=== PATIENT | male | born 1945 | race Two or more races ===

== ENCOUNTER 2017-11-30 18:22 | Emergency (ER) | payer OTHER ==
[~2017-11-30] VITALS: Ht 177.8 cm; Wt 56.2 kg
[2017-11-30] MEDS ORDERED: SODIUM CHLORIDE 0.9% 1,000 ML IV ONE (21:45)
[2017-11-30 22:06] LABS: Basophils # (auto) 0 uL; Basophils % (auto) 0.8 % (0.0-2.0); Eosinophils # (auto) 0.1 uL; Eosinophils % (auto) 1.3 % (0.0-7.0); Hematocrit 39.4 % (41.0-53.0); Hemoglobin 13.6 g/dL (13.5-17.5); Lymphocytes # (auto) 1.7 uL; Lymphocytes % (auto) 40.7 % (10.0-50.0); Mean Corpuscular Hemoglobin 32.6 pg (28.0-32.0); Mean Corpuscular Hgb Conc. 34.4 g/dL (32.0-36.0); Mean Corpuscular Volume 94.6 fL (80.0-100.0); Monocytes # (auto) 0.4 uL; Monocytes % (auto) 8.8 % (0.0-12.0); Neutrophils % (auto) 48.4 % (37.0-80.0); Nucleated Red Blood Cells % 0.1 %; Platelet Count (auto) 226 10^3/uL (140-450); Red Blood Cells 4.17 10^6/uL (4.5-5.90); Red Cell Distribution Width 14.8 % (11.8-14.3); White Blood Cell 4.1 10^3/uL (4.4-10.8)
[2017-11-30 22:14] LABS: Albumin 3.4 g/dL (3.4-5.0); BUN/Creatinine Ratio 16.2; Calcium 8.5 mg/dL (8.5-10.1); Potassium 3.5 mmol/L (3.5-5.1)
[2017-11-30 22:17] LABS: Bilirubin, Total 0.6 mg/dL (0.2-1.0); Total Protein 7.6 g/dL (6.4-8.2)
[2017-11-30 22:40] LABS: Urine Bacteria NONE SEEN /hpf (None Seen); Urine Blood TRACE /uL (Negative); Urine Hyaline Cast FEW /lpf (0 - 2); Urine Mucus FEW (None Seen); Urine Specific Gravity 1.019 (1.001-1.035); Urine WBC 2 /hpf (0 - 3)
[2017-12-01] MEDS ORDERED: LORazepam 2MG/ML-1ML VIAL IV ONE (00:45)
[2017-12-01 05:58] VITALS: BP 127/59
== END 2017-12-01 05:59 | disposition home or self-care (01) ==
LOC: ER 18:22
DX: N13.9 Obstructive and reflux uropathy, unspecified (principal); N40.0 Benign prostatic hyperplasia without lower urinary tract symptoms; K59.00 Constipation, unspecified; F17.210 Nicotine dependence, cigarettes, uncomplicated
CPT/HCPCS: 36415; 51702; 74176; 80053; 81001; 83690; 85025; 93005; 96374; 99285; J2060

== ENCOUNTER 2017-12-02 20:25 | Emergency (ER) | payer OTHER ==
[~2017-12-02] VITALS: Ht 165.1 cm; Wt 63.5 kg
[2017-12-02 21:09] LABS: Urine Bacteria NONE SEEN /hpf (None Seen); Urine Blood 3+ /uL (Negative); Urine Mucus FEW (None Seen); Urine Specific Gravity 1.012 (1.001-1.035); Urine WBC 29 /hpf (0 - 3)
[2017-12-02 21:44] LABS: Basophils # (auto) 0.1 uL; Basophils % (auto) 0.9 % (0.0-2.0); Eosinophils # (auto) 0 uL; Eosinophils % (auto) 0.5 % (0.0-7.0); Hematocrit 36.2 % (41.0-53.0); Hemoglobin 12.6 g/dL (13.5-17.5); Lymphocytes # (auto) 1.6 uL; Lymphocytes % (auto) 22.8 % (10.0-50.0); Mean Corpuscular Hemoglobin 32.8 pg (28.0-32.0); Mean Corpuscular Hgb Conc. 34.8 g/dL (32.0-36.0); Monocytes # (auto) 0.6 uL; Neutrophils # (auto) 4.9 uL; Neutrophils % (auto) 67.8 % (37.0-80.0); Nucleated Red Blood Cells % 0.2 %; Platelet Count (auto) 264 10^3/uL (140-450); Red Blood Cells 3.85 10^6/uL (4.5-5.90); Red Cell Distribution Width 15.1 % (11.8-14.3); White Blood Cell 7.2 10^3/uL (4.4-10.8)
[2017-12-02 22:00] LABS: Albumin 3.7 g/dL (3.4-5.0); Anion Gap 8 (5-15); Blood Urea Nitrogen 14 mg/dL (7-18); Calcium 8.4 mg/dL (8.5-10.1); Carbon Dioxide 30 mmol/L (21-32); Chloride 103 mmol/L (98-107); Glucose 61 mg/dL (74-106); Potassium 3.4 mmol/L (3.5-5.1); Sodium 141 mmol/L (136-145)
[2017-12-02 22:02] LABS: BUN/Creatinine Ratio 15.1; GFR African American 102 mL/min; GFR Non-African American 84 mL/min
[2017-12-02 22:11] LABS: Alanine Aminotransferase 25 U/L (16-61); Alkaline Phosphatase 69 U/L (45-117); Aspartate Aminotransferase 17 U/L (15-37); Bilirubin, Total 0.3 mg/dL (0.2-1.0); Total Protein 7.6 g/dL (6.4-8.2)
[2017-12-02] MEDS ORDERED: SODIUM CHLORIDE 0.9% 1,000 ML IV ONE (22:15)
[2017-12-03 02:00] VITALS: BP 144/78
== END 2017-12-03 01:34 | disposition home or self-care (01) ==
LOC: EDBD 20:25 → ER 20:30
DX: N39.0 Urinary tract infection, site not specified (principal); N13.9 Obstructive and reflux uropathy, unspecified; E11.9 Type 2 diabetes mellitus without complications; E87.6 Hypokalemia; R11.10 Vomiting, unspecified; F17.210 Nicotine dependence, cigarettes, uncomplicated
CPT/HCPCS: 36415; 74176; 80053; 81001; 83690; 84484; 85025; 93005; 94761; 96360; 96361; 99285; J7030

== ENCOUNTER 2017-12-09 09:05 | Emergency (ER) | payer OTHER ==
[~2017-12-09] VITALS: Ht 170.2 cm; Wt 63.5 kg
[2017-12-09 11:00] VITALS: BP 128/72
[2017-12-09] MEDS ORDERED: SODIUM CHLORIDE 0.9% 1,000 ML IV ONE (11:15)
[2017-12-09] MEDS ORDERED: MORPHINE SULFATE 4 MG/ML SYR/VIAL IV ONE (11:15)
[2017-12-09] MEDS ORDERED: ONDANSETRON HCL 4 MG/2 ML VIAL IV ONE (11:15)
== END 2017-12-09 13:01 | disposition home or self-care (01) ==
LOC: EDUNIT# 09:05 → EDBD 09:05 → ER 09:05
DX: T83.018A Breakdown (mechanical) of other urinary catheter, initial encounter (principal); K59.00 Constipation, unspecified; F17.210 Nicotine dependence, cigarettes, uncomplicated; E11.9 Type 2 diabetes mellitus without complications
CPT/HCPCS: 51702; 74176; 96374; 96375; 99284; J2270; J2405

== ENCOUNTER 2017-12-13 12:23 | Emergency (ER) | payer OTHER ==
[~2017-12-13] VITALS: Ht 170.2 cm; Wt 55.0 kg
[2017-12-13 12:40] VITALS: BP 116/68
[2017-12-13 14:00] LABS: Basophils # (auto) 0 uL; Basophils % (auto) 0.8 % (0.0-2.0); Eosinophils # (auto) 0 uL; Eosinophils % (auto) 0.2 % (0.0-7.0); Hematocrit 36.7 % (41.0-53.0); Hemoglobin 12.6 g/dL (13.5-17.5); Lymphocytes # (auto) 1.2 uL; Lymphocytes % (auto) 18.2 % (10.0-50.0); Mean Corpuscular Hemoglobin 32.7 pg (28.0-32.0); Mean Corpuscular Hgb Conc. 34.3 g/dL (32.0-36.0); Mean Corpuscular Volume 95.3 fL (80.0-100.0); Monocytes # (auto) 0.4 uL; Monocytes % (auto) 5.9 % (0.0-12.0); Neutrophils # (auto) 4.8 uL; Neutrophils % (auto) 74.9 % (37.0-80.0); Platelet Count (auto) 304 10^3/uL (140-450); Red Blood Cells 3.85 10^6/uL (4.5-5.90); Red Cell Distribution Width 15.5 % (11.8-14.3); White Blood Cell 6.4 10^3/uL (4.4-10.8)
[2017-12-13 14:15] LABS: Albumin 3.1 g/dL (3.4-5.0); Calcium 8.1 mg/dL (8.5-10.1); Potassium 3.2 mmol/L (3.5-5.1)
[2017-12-13 14:18] LABS: BUN/Creatinine Ratio 18.2; Bilirubin, Total 0.5 mg/dL (0.2-1.0); Total Protein 7.2 g/dL (6.4-8.2)
[2017-12-13 15:17] LABS: INR 1.05 (0.9-1.15); Partial Thromboplastin Time 27.3 sec (23.78-33.04); Prothrombin Time 11.2 sec (9.27-12.13)
[2017-12-13] MEDS ORDERED: POTASSIUM EFFERVESENT TAB 25 MEQ PO ONE (16:15)
== END 2017-12-13 18:34 | disposition home or self-care (01) ==
LOC: ER 12:23
DX: K64.9 Unspecified hemorrhoids (principal); E87.6 Hypokalemia; E11.9 Type 2 diabetes mellitus without complications; G30.9 Alzheimer's disease, unspecified; F02.80 Dementia in other diseases classified elsewhere, unspecified severity, without behavioral disturbance, psychotic disturbance, mood disturbance, and anxiety
CPT/HCPCS: 36415; 80053; 82962; 85025; 85610; 85730; 93005

== ENCOUNTER 2018-04-02 13:51 | Emergency (ER) | payer OTHER ==
[~2018-04-02] VITALS: Ht 170.2 cm; Wt 46.3 kg
[2018-04-02] MEDS ORDERED: SODIUM CHLORIDE 0.9% 2,000 ML IV ONE (17:45)
[2018-04-02 18:37] LABS: Basophils # (auto) 0 uL; Basophils % (auto) 0.2 % (0.0-2.0); Eosinophils # (auto) 0 uL; Hematocrit 31.3 % (41.0-53.0); Hemoglobin 10.1 g/dL (13.5-17.5); Lymphocytes # (auto) 1.2 uL; Lymphocytes % (auto) 10.6 % (10.0-50.0); Mean Corpuscular Hemoglobin 30.6 pg (28.0-32.0); Mean Corpuscular Hgb Conc. 32.3 g/dL (32.0-36.0); Mean Corpuscular Volume 94.9 fL (80.0-100.0); Monocytes # (auto) 0.5 uL; Monocytes % (auto) 4.2 % (0.0-12.0); Neutrophils # (auto) 9.5 uL; Platelet Count (auto) 551 10^3/uL (140-450); White Blood Cell 11.1 10^3/uL (4.4-10.8)
[2018-04-02 18:56] LABS: Alanine Aminotransferase 11 U/L (16-61); Albumin 2.4 g/dL (3.4-5.0); Anion Gap 13 (5-15); Aspartate Aminotransferase 9 U/L (15-37); BUN/Creatinine Ratio 21.2; Blood Urea Nitrogen 40 mg/dL (7-18); Calcium 8.1 mg/dL (8.5-10.1); Carbon Dioxide 25 mmol/L (21-32); Chloride 97 mmol/L (98-107); GFR African American 45 mL/min; GFR Non-African American 37 mL/min; Glucose 130 mg/dL (74-106); Potassium 4.3 mmol/L (3.5-5.1); Sodium 135 mmol/L (136-145)
[2018-04-02 19:00] LABS: Alkaline Phosphatase 104 U/L (45-117); Bilirubin, Total 0.5 mg/dL (0.2-1.0); Total Protein 8.5 g/dL (6.4-8.2)
[2018-04-02] MEDS ORDERED: HYDROcodone-ACET 5/325MG TAB PO ONE (20:30)
[2018-04-02] MEDS ORDERED: SODIUM CHLORIDE 0.9% 1,000 ML IV ONE (23:30)
[2018-04-02 23:50] LABS: Calcium 7.7 mg/dL (8.5-10.1); Potassium 4.2 mmol/L (3.5-5.1)
[2018-04-02 23:52] LABS: BUN/Creatinine Ratio 20.7
[2018-04-02 23:56] LABS: Urine Bacteria MOD /hpf (None Seen); Urine Blood 2+ /uL (Negative); Urine WBC 5448 /hpf (0 - 3); Urine WBC Clumps PRESENT /hpf (None Seen)
[2018-04-03] LABS: Urine Specific Gravity 1.015 (1.001-1.035)
[2018-04-03 00:47] VITALS: BP 131/70
== END 2018-04-03 02:34 | disposition home or self-care (01) ==
LOC: ER 13:51
DX: S50.01XA Contusion of right elbow, initial encounter (principal); R22.0 Localized swelling, mass and lump, head; E11.9 Type 2 diabetes mellitus without complications; E78.5 Hyperlipidemia, unspecified; W18.39XA Other fall on same level, initial encounter; Y93.89 Activity, other specified; Y99.8 Other external cause status; Y92.89 Other specified places as the place of occurrence of the external cause
CPT/HCPCS: 36415; 70450; 71046; 73090; 80048; 80053; 81001; 82962; 84484; 85025; 93005

== ENCOUNTER 2018-04-28 19:20 | Inpatient (IN) | payer OTHER ==
[~2018-04-28] VITALS: Ht 170.2 cm; Wt 49.5 kg
[2018-04-28] MEDS ORDERED: TETANUS-DIPTH-ACEL PERTUSSIS 0.5ML SYRG IM ONE (20:15)
[2018-04-28] MEDS ORDERED: cefTRIAXone 1GM/50ML D5W 50 ML IV ONE (23:30)
[2018-04-29] MEDS ORDERED: NEOMYCIN-BACITRACIN-POLYM UNITDOSE PKG TOP OINT TOP ONE (00:30)
[2018-04-29] MEDS ORDERED: LIDOCAINE W/ EPINEPHRINE 2% INJ 20ML VIAL IJ ONE (00:30)
[2018-04-29] MEDS ORDERED: LIDOCAINE 2% (LOCAL ANESTH.) PF 5ml SDV ONE (00:39)
[2018-04-29 00:51] LABS: Basophils # (auto) 0 uL; Basophils % (auto) 0.4 % (0.0-2.0); Eosinophils # (auto) 0.2 uL; Eosinophils % (auto) 1.9 % (0.0-7.0); Hematocrit 27.2 % (41.0-53.0); Hemoglobin 9.1 g/dL (13.5-17.5); Lymphocytes # (auto) 1.6 uL; Lymphocytes % (auto) 18.5 % (10.0-50.0); Mean Corpuscular Hemoglobin 31.1 pg (28.0-32.0); Mean Corpuscular Hgb Conc. 33.6 g/dL (32.0-36.0); Mean Corpuscular Volume 92.5 fL (80.0-100.0); Monocytes # (auto) 0.5 uL; Monocytes % (auto) 6.1 % (0.0-12.0); Neutrophils # (auto) 6.2 uL; Neutrophils % (auto) 73.1 % (37.0-80.0); Platelet Count (auto) 365 10^3/uL (140-450); Red Blood Cells 2.94 10^6/uL (4.5-5.90); Red Cell Distribution Width 16.7 % (11.8-14.3); White Blood Cell 8.4 10^3/uL (4.4-10.8)
[2018-04-29 01:08] LABS: INR 1.12 (0.9-1.15); Magnesium 2.3 mg/dL (1.6-2.6); Partial Thromboplastin Time 25.3 sec (23.78-33.04); Prothrombin Time 11.9 sec (9.27-12.13)
[2018-04-29 01:12] LABS: BUN/Creatinine Ratio 23.6; Calcium 7.3 mg/dL (8.5-10.1); Potassium 3.9 mmol/L (3.5-5.1)
[2018-04-29 01:14] LABS: Bilirubin, Total 0.1 mg/dL (0.2-1.0); Total Protein 5.9 g/dL (6.4-8.2)
[2018-04-29] MEDS ORDERED: VANCOMYCIN 1GM/250ML 250 ML IV ONE (02:15)
[2018-04-29] MEDS ORDERED: ONDANSETRON HCL 4 MG/2 ML VIAL IV ONE (02:30)
[2018-04-29] MEDS ORDERED: MORPHINE SULFATE 4 MG/ML SYR/VIAL IV ONE (02:30)
[2018-04-29] MEDS ORDERED: DEXTROSE (50%) 50ML SYRG IV ONE (04:30)
[2018-04-29] MEDS ORDERED: NITROGLYCERIN 0.4 MG SL TAB SL PRN (04:30)
[2018-04-29] MEDS ORDERED: VANCOMYCIN PER PHARMACY 0 MG IV SCH (04:30)
[2018-04-29] MEDS ORDERED: ONDANSETRON HCL 4 MG/2 ML VIAL IV PRN (04:30)
[2018-04-29] MEDS ORDERED: MORPHINE SULFATE 4 MG/ML SYR/VIAL IV PRN (04:30)
[2018-04-29] MEDS ORDERED: DOCUSATE SOD 100 MG CAP PO PRN (04:30)
[2018-04-29] MEDS: SODIUM CHLORIDE 0.9% 1,000 ML IV SCH ×5 (04:59→21:09)
--- NOTE | 2018-04-29 05:45 | NUR ---
Telemetry admit from [facility] admitted to Telemetry unit. Patient oriented to Zohra Blanchard, primary RN, unit, room, bed, and unit policies regarding patient care and visiting hours. Patient now on continuous telemetry monitoring, tele box #17 and telemetry reading on arrival to unit is SR. Patient placed on bedside oxygen, weighed by bedscale and encouraged to call if they need something. All questions and concerns addressed, patient verbalized understanding. Note: patient alert and oriented x 3, re-oriented to time. Patient is palestinian speaker, sap analyst at bedside. room air with even and unlabored respirations. family at bedside. IV intact and patent. instructed on POC and to call PRN. will continue care.
[2018-04-29] MEDS: PIPERACILLIN-TAZOB 3.375GM 100 ML IV SCH ×3 (05:47→17:49)
--- NOTE | 2018-04-29 06:45 | NUR ---
Wound Photo Taken
[2018-04-29] MEDS ORDERED: InsuLIN REG 1unit/0.01ml Soln (100units/ml) SC ONE (07:00)
[2018-04-29] MEDS ORDERED: ACCU-CHEK COMFORT CURVE STRIP VI ONE (07:00)
--- NOTE | 2018-04-29 07:00 | NUR ---
Closing Note patient resting in bed with even and unlabored respirations. no s/s of distress. IV intact and patent infusing Zosyn. Bed alarm on. patient remains NPO. Endorsed care to day shift RN.
[2018-04-29] MEDS: MORPHINE SULFATE 4 MG/ML SYR/VIAL IV PRN ×3 (07:01→20:00)
[2018-04-29 08:00] VITALS: BP 115/69
[2018-04-29 09:00] VITALS: BP 115/69
--- NOTE | 2018-04-29 09:01 | NUR ---
VISITORS FAMILY AT BEDSIDE, QUESTIONS AND CONCERNS ADDRESSED
--- NOTE | 2018-04-29 09:56 | NUR ---
CALL TO PLACED CALL TO DR. UP, NEW ORDERS PLACED REGARDING SSI, DIET, AND IV FLUIDS.
[2018-04-29 10:06] LABS: Basophils # (auto) 0.1 uL; Basophils % (auto) 0.7 % (0.0-2.0); Eosinophils # (auto) 0.2 uL; Eosinophils % (auto) 3.2 % (0.0-7.0); Hematocrit 28.5 % (41.0-53.0); Hemoglobin 9.5 g/dL (13.5-17.5); Lymphocytes # (auto) 1.4 uL; Lymphocytes % (auto) 18.9 % (10.0-50.0); Mean Corpuscular Hemoglobin 30.7 pg (28.0-32.0); Mean Corpuscular Hgb Conc. 33.2 g/dL (32.0-36.0); Mean Corpuscular Volume 92.5 fL (80.0-100.0); Monocytes # (auto) 0.5 uL; Monocytes % (auto) 6.2 % (0.0-12.0); Neutrophils # (auto) 5.4 uL; Platelet Count (auto) 341 10^3/uL (140-450); Red Blood Cells 3.08 10^6/uL (4.5-5.90); Red Cell Distribution Width 16.7 % (11.8-14.3); White Blood Cell 7.5 10^3/uL (4.4-10.8)
[2018-04-29 10:19] LABS: BUN/Creatinine Ratio 34.6; Calcium 7.5 mg/dL (8.5-10.1)
[2018-04-29] MEDS ORDERED: DEXTROSE (50%) 50ML SYRG IV PRN (12:00)
--- NOTE | 2018-04-29 12:45 | NUR ---
ACCUCHECK RANDOM BEDSIDE ACCUCHECK PERFORMED, BS 104
[2018-04-29 13:00] VITALS: BP 117/62
--- NOTE | 2018-04-29 13:00 | NUR ---
WOUND CARE NOTE: IN TO SEE PATIENT AT THIS TIME PER WOUND CARE CONSULT REQUEST. PATIENT ADMITTED TO [facility] WITH DIAGNOSIS OF L PELVIC ABSCESS. DAUGHTER IS AT BEDSIDE. SHE STATES THAT PATIENT FELL AT HOME PRIOR TO HOSPITALIZATION. PATIENT NOTED TO HAVE WOUNDS. ALL WOUNDS WERE PHOTOGRAPHED FOR REFERENCE BY BEDSIDE NURSE. CURRENT REBEKAH SCORE IS 19. PATIENT IS ABLE TO SELF TURN/REPOSITION SELF. HE HAS A SUTURED LACERATION TO RIGHT PERIORBITAL FOREHEAD. LEFT OPEN TO AIR. NO DRAINAGE NOTED. RIGHT HAND AND FOREARM HAVE SKIN TEARS NOTED. APPLIED THERAHONEY AND OPTIFOAM GENTLE DRESSINGS AT THIS TIME. ALL WOUND STATS CAN BE FOUND WITHIN WOUND ASSESSMENT, LINKED WITH THIS NOTE. RECOMMEND: Q 3 DAY/PRN DRESSING CHANGE TO RIGHT ARM SKIN TEARS, BID/PRN APPLICATION WITH MOISTURE BARRIER CREAM AND OPTIFOAM GENTLE SACRAL DRESSING, DIETARY CONSULT, CONTINUED MONITORING BY WOUND CARE TEAM. Addendum: 04/29/18 at 1830 by Vicky Powell RN Amended: Links added.
[2018-04-29 17:20] VITALS: BP 115/66
--- NOTE | 2018-04-29 17:43 | NUR ---
PT REFUSED P.T. FAMILY WAS PRESENT.
[2018-04-29] MEDS: InsuLIN REG 1unit/0.01ml Soln (100units/ml) SC SCH ×2 (17:48→21:13)
[2018-04-29] MEDS: ACCU-CHEK COMFORT CURVE STRIP VI SCH ×2 (17:49→21:10)
--- NOTE | 2018-04-29 19:50 | NUR ---
Opening Shift Note Assumed care of patient, awake and alert, oriented x 3, reoriented to time. Georgian speaking, motion picture camera operator at bedside. No S/S of distress/SOB. On room air with even and unlabored respirations. IV intact and patent infusing NS at 80mL / hr. Patient report abd pain 10/10, will follow up with pain medications per orders. Assisted patient with minimal assistance to bathroom and back to bed. bed low locked position with side rails up x 2 and call light within reach, bed alarm on. Instructed on POC and to call for assist PRN, will continue to monitor for changes Q1hr and PRN.
[2018-04-29 20:00] VITALS: BP 98/62
--- NOTE | 2018-04-29 20:05 | NUR ---
herminio Link RE: home medication patients family report patient takes Zoloft 100mg every night. awaiting call back. will continue care.
[2018-04-29] MEDS ORDERED: SERT-135 PO (20:09)
--- NOTE | 2018-04-29 20:20 | NUR ---
Received call back from MD Link updated on patient status. new order received for Zoloft 100mg PO daily. read back and verified, will carry out order and continue care.
[2018-04-29] MEDS ORDERED: FERR-20 PO (20:25)
[2018-04-29] MEDS ORDERED: ATOR20TA PO (20:25)
[2018-04-29] MEDS: SERTRALINE HCL 50 MG TAB PO SCH (20:59)
[2018-04-29] MEDS: VANCOMYCIN 1GM/250ML 250 ML IV SCH (20:59)
[2018-04-30] MEDS: MORPHINE SULFATE 4 MG/ML SYR/VIAL IV PRN ×4 (00:07→20:55)
[2018-04-30] MEDS: PIPERACILLIN-TAZOB 3.375GM 100 ML IV SCH ×4 (00:07→17:39)
[2018-04-30 06:00] VITALS: BP 118/69
[2018-04-30] MEDS: InsuLIN REG 1unit/0.01ml Soln (100units/ml) SC SCH ×4 (06:42→21:03)
[2018-04-30] MEDS: ACCU-CHEK COMFORT CURVE STRIP VI SCH ×4 (06:42→21:03)
--- NOTE | 2018-04-30 07:02 | NUR ---
Closing Note patient resting in bed with even and unlabored respirations. no s/s of distress. IV intact and patent. Bed alarm on. Endorsed care to day shift RN.
[2018-04-30 08:00] VITALS: BP 112/62
[2018-04-30 08:04] LABS: Basophils # (auto) 0 uL; Basophils % (auto) 0.7 % (0.0-2.0); Eosinophils # (auto) 0.3 uL; Eosinophils % (auto) 4.4 % (0.0-7.0); Hematocrit 28.6 % (41.0-53.0); Hemoglobin 9.5 g/dL (13.5-17.5); Lymphocytes # (auto) 1.8 uL; Lymphocytes % (auto) 25.5 % (10.0-50.0); Mean Corpuscular Hgb Conc. 33.4 g/dL (32.0-36.0); Mean Corpuscular Volume 92.8 fL (80.0-100.0); Monocytes # (auto) 0.4 uL; Monocytes % (auto) 6.1 % (0.0-12.0); Neutrophils # (auto) 4.5 uL; Neutrophils % (auto) 63.3 % (37.0-80.0); Platelet Count (auto) 331 10^3/uL (140-450); Red Blood Cells 3.08 10^6/uL (4.5-5.90); Red Cell Distribution Width 17.2 % (11.8-14.3); White Blood Cell 7.1 10^3/uL (4.4-10.8)
[2018-04-30 08:32] LABS: BUN/Creatinine Ratio 27.1; Calcium 7.2 mg/dL (8.5-10.1)
[2018-04-30 09:00] VITALS: BP 112/62
[2018-04-30] MEDS: SODIUM CHLORIDE 0.9% 1,000 ML IV SCH ×2 (12:20→17:39)
[2018-04-30 13:00] VITALS: BP 107/61
[2018-04-30] MEDS: VANCOMYCIN 1GM/250ML 250 ML IV SCH (16:21)
--- NOTE | 2018-04-30 16:45 | NUR ---
PT AMBULATING PT FOUND ATTEMPTING TO GET OUT OF BED, HE WAS REQUESTING HIS CLOTHES AND SHOES, HE TOLD THIS RN AND ANOTHER RN TO GET OUT OF HIS HOUSE AND LEAVE HIM ALONE, PT REORIENTED TO PLACE AND PURPOSE OF VISIT, PT WOULD VERBALIZE UNDERSTANDING THEN IMMEDIATELY FORGOT ONCE QUESTIONED AGAIN. EPISODES SEEM TO OCCUR MORE IN EVENING HOURS AND AT NIGHT, RETAIL PRODUCT DEMO SPECIALIST NOTIFIED.
[2018-04-30 17:00] VITALS: BP 108/59
--- NOTE | 2018-04-30 19:19 | NUR ---
IV removal Pt pulled out IV, catheter fully intact. Pressure dressing applied to site. Patient tolerated procedure well.
--- NOTE | 2018-04-30 19:21 | NUR ---
IV insertion IV access obtained, via clean sterile technique by inserting 22 gauge catheter at after 1 attempt to right wrist. IV secured properly. No trauma to site. Patient tolerated well.
--- NOTE | 2018-04-30 19:40 | NUR ---
Opening Shift Note Assumed care of patient, awake and alert, oriented x 3, reoriented to time. Albanian speaking, roustabout crew leader at bedside. No S/S of distress/SOB. On room air with even and unlabored respirations. IV intact and patent infusing NS at 80mL / hr. sitter at bed side. bed low locked position with side rails up x 2 and call light within reach, bed alarm on. Instructed on POC and to call for assist PRN, will continue to monitor for changes Q1hr and PRN.
[2018-04-30] MEDS: SERTRALINE HCL 50 MG TAB PO SCH (20:55)
[2018-04-30 22:00] VITALS: BP 113/65
[2018-04-30] MEDS ORDERED: ZOLPIDEM TARTRATE 5 MG TAB PO PRN (22:00)
[2018-05-01] MEDS: PIPERACILLIN-TAZOB 3.375GM 100 ML IV SCH ×3 (00:02→12:17)
[2018-05-01] MEDS: MORPHINE SULFATE 4 MG/ML SYR/VIAL IV PRN ×2 (06:40→11:05)
[2018-05-01] MEDS: ACCU-CHEK COMFORT CURVE STRIP VI SCH ×3 (06:51→17:00)
[2018-05-01] MEDS: SODIUM CHLORIDE 0.9% 1,000 ML IV SCH ×2 (06:51→14:00)
[2018-05-01] MEDS: InsuLIN REG 1unit/0.01ml Soln (100units/ml) SC SCH ×3 (06:51→17:00)
--- NOTE | 2018-05-01 07:10 | NUR ---
Closing Note patient resting in bed with even and unlabored respirations. no s/s of distress. IV intact and patent. Bed alarm on. sitter at bedside. Endorsed care to day shift RN.
--- NOTE | 2018-05-01 07:25 | NUR ---
Open Shift Note Received report on patient, awake and lying in bed. Patient shows no signs of distress at this time. States they have no pain. Discussed POC. Bed in lowest locked position, side rails up x2, and call light within reach. Sitter present at bedside. Will continue to monitor.
[2018-05-01 08:37] LABS: Basophils # (auto) 0 uL; Basophils % (auto) 0.6 % (0.0-2.0); Eosinophils # (auto) 0.2 uL; Eosinophils % (auto) 2.7 % (0.0-7.0); Hematocrit 26.8 % (41.0-53.0); Hemoglobin 8.7 g/dL (13.5-17.5); Lymphocytes # (auto) 0.9 uL; Lymphocytes % (auto) 14.8 % (10.0-50.0); Mean Corpuscular Hemoglobin 30.4 pg (28.0-32.0); Mean Corpuscular Hgb Conc. 32.4 g/dL (32.0-36.0); Mean Corpuscular Volume 93.8 fL (80.0-100.0); Monocytes # (auto) 0.3 uL; Monocytes % (auto) 4.8 % (0.0-12.0); Neutrophils # (auto) 4.8 uL; Neutrophils % (auto) 77.1 % (37.0-80.0); Nucleated Red Blood Cells % 0.1 %; Platelet Count (auto) 318 10^3/uL (140-450); Red Blood Cells 2.86 10^6/uL (4.5-5.90); Red Cell Distribution Width 16.9 % (11.8-14.3); White Blood Cell 6.2 10^3/uL (4.4-10.8)
[2018-05-01 09:10] LABS: Calcium 7.4 mg/dL (8.5-10.1); Potassium 3.9 mmol/L (3.5-5.1)
--- NOTE | 2018-05-01 09:10 | NUR ---
Radiology Consult Spoke with radiology, stated that Dr Arango determined it is not an abscess, rather a large bladder diverticulum.
[2018-05-01 09:12] LABS: BUN/Creatinine Ratio 23.8
[2018-05-01] MEDS: VANCOMYCIN 1GM/250ML 250 ML IV SCH (09:35)
--- NOTE | 2018-05-01 10:42 | NUR ---
Spoke With Dr Cathleen Connolly stated that patient is cleared for discharge after prabhakar is placed and dose of antibiotics has been given. Also stated that [facility] will be making urology appointment for patient in [facility] [place] tomorrow. Verbalized understanding.
[2018-05-01] MEDS ORDERED: LIDOCAINE 2% JELLY 11ml (GLYDO) UR ONE (13:15)
--- NOTE | 2018-05-01 13:48 | NUR ---
faxed ss order to [facility]
--- NOTE | 2018-05-01 14:45 | NUR ---
Inserted Asencio Inserted coude tip catheter per charge nurse into patient's urethra with urine return seen. Patient stated pain upon insertion, minimal trauma present. Will continue to monitor.
[2018-05-01 15:42] VITALS: BP 132/74
--- NOTE | 2018-05-01 17:36 | NUR ---
Discharged Discharge instructions given as ordered. Encourage to follow up with PMD as instructed. Informed that appointment scheduled tomorrow with Urologist through [facility]. All questions and concerns addressed. Patient verbalized understanding. Medication reconciliation form completed and copy given to patient. IV removed with catheter intact, pressure dressing applied. Telemetry unit returned to ICU. Patient taken to vehicle via wheelchair with all personal belongings, accompanied by staff and family member. No distress noted at time of departure.
[2018-05-01] MEDS ORDERED: VANCOMYCIN 1GM/250ML 250 ML IV SCH (21:00)
== END 2018-05-01 17:35 | disposition home or self-care (01) | DRG 690 ==
LOC: ER 19:20 → EDBD 19:20 → TELE 04-29 04:46 → TELE-EAST 04-29 06:02
PROVIDERS: ADMIT Hospitalist; ATTEND Hospitalist
PROC: 0HQ1XZZ Repair Face Skin, External Approach (ICD-10-PCS; principal; 2018-04-29)
DX: N30.81 Other cystitis with hematuria (principal); S01.111A Laceration without foreign body of right eyelid and periocular area, initial encounter; S60.811A Abrasion of right wrist, initial encounter; E11.9 Type 2 diabetes mellitus without complications; E78.5 Hyperlipidemia, unspecified; F02.80 Dementia in other diseases classified elsewhere, unspecified severity, without behavioral disturbance, psychotic disturbance, mood disturbance, and anxiety; G30.9 Alzheimer's disease, unspecified; I67.2 Cerebral atherosclerosis; N32.3 Diverticulum of bladder; K59.00 Constipation, unspecified; K80.20 Calculus of gallbladder without cholecystitis without obstruction; M47.812 Spondylosis without myelopathy or radiculopathy, cervical region; M47.816 Spondylosis without myelopathy or radiculopathy, lumbar region; M77.9 Enthesopathy, unspecified; W01.0XXA Fall on same level from slipping, tripping and stumbling without subsequent striking against object, initial encounter; F32.9 Major depressive disorder, single episode, unspecified; S01.81XA Laceration without foreign body of other part of head, initial encounter; M48.02 Spinal stenosis, cervical region; Z23 Encounter for immunization; Z90.79 Acquired absence of other genital organ(s); Y93.89 Activity, other specified; Y92.090 Kitchen in other non-institutional residence as the place of occurrence of the external cause; Y99.8 Other external cause status
CPT/HCPCS: 12011; 36415; 70450; 72125; 74176; 76705; 80048; 80053; 80202; 81001; 82962; 83690; 83735; 84484; 85025; 85379; 85610; 85730; 87040; 87081; 90471; 90715; 93005; 96365; 96367; 96375; 97163; A6257; G0378; J0696; J1815; J2001; J2405; J2543

== ENCOUNTER 2023-11-16 12:52 | Emergency (ER) | payer OTHER ==
[~2023-11-16] VITALS: Ht 167.6 cm; Wt 59.0 kg
[~2023-11-16 12:52] MED LIST: ATOR20TA PO; FERR325T24 PO; SERT100T PO
[2023-11-16 15:11] LABS: Basophils # (auto) 0 10 ^3/uL (0-0.2); Basophils % (auto) 0.6 % (0.0-2.0); Eosinophils # (auto) 0 10 ^3/uL (0-0.8); Eosinophils % (auto) 0.4 % (0.0-7.0); Hematocrit 33.9 % (41.0-53.0); Hemoglobin 11.5 g/dL (13.5-17.5); Lymphocytes # (auto) 0.9 10 ^3/uL (0.4-5.4); Lymphocytes % (auto) 18.9 % (10.0-50.0); Mean Corpuscular Hemoglobin 32.8 pg (28.0-32.0); Mean Corpuscular Volume 96.4 fL (80.0-100.0); Monocytes # (auto) 0.4 10 ^3/uL (0-1.3); Monocytes % (auto) 8.7 % (0.0-12.0); Neutrophils # (auto) 3.4 10 ^3/uL (1.6-8.6); Neutrophils % (auto) 71.4 % (37.0-80.0); Nucleated Red Blood Cells % 0.1 %; Platelet Count (auto) 384 10^3/uL (140-450); Red Blood Cells 3.52 10^6/uL (4.5-5.90); Red Cell Distribution Width 15.1 % (11.8-14.3); White Blood Cell 4.7 10^3/uL (4.4-10.8)
[2023-11-16 15:20] LABS: Alanine Aminotransferase 45 U/L (7-40); Albumin 3.6 g/dL (3.2-4.8); Alkaline Phosphatase 246 U/L (46-116); Anion Gap 6 (5-15); Aspartate Aminotransferase 12 U/L (13-40); BUN/Creatinine Ratio 10.5 (10.0-20.0); Blood Urea Nitrogen 9 mg/dL (9-23); Calcium 8.6 mg/dL (8.7-10.4); Carbon Dioxide 32 mmol/L (20-30); Chloride 103 mmol/L (98-107); Glucose 123 mg/dL (74-106); Potassium 3.6 mmol/L (3.5-5.1); Sodium 141 mmol/L (136-145)
[2023-11-16 15:21] LABS: Total Protein 6.5 g/dL (5.7-8.2)
[2023-11-16 16:16] VITALS: TEMP 98.5
[2023-11-16] MEDS: metroNIDAZOLE 500MG/100ML 100 ML IV ONE (16:45)
[2023-11-16] MEDS: levoFLOXacin 500MG 100 ML IV ONE (17:15)
[2023-11-16 18:23] VITALS: BP 149/80; PULSE 66; RESP 16; O2SAT 100
== END 2023-11-16 19:17 | disposition home or self-care (01) ==
LOC: ER 12:52
DX: K31.6 Fistula of stomach and duodenum (principal); N32.2 Vesical fistula, not elsewhere classified; E11.9 Type 2 diabetes mellitus without complications; E78.5 Hyperlipidemia, unspecified; Z90.49 Acquired absence of other specified parts of digestive tract; Z79.899 Other long term (current) drug therapy
CPT/HCPCS: 36415; 74176; 80053; 83605; 85025; 96365; 96366; 96368; 99285; J1956; J3490